=== PATIENT | female | born 1945 | race Caucasian/White ===

== ENCOUNTER 2019-03-26 12:54 | Emergency (ER) | payer MEDICARE, BC ==
[2019-03-26] MEDS ORDERED: HYDROCODONE/APAP 5/325MG TABLET PO ONE (14:03)
--- NOTE | 2019-03-26 14:06 | Emergency Department Record ---
History of Present Illness - General Chief complaint: Extremity Problem Stated complaint: RT LEG PAIN Time Seen by Provider: 03/26/19 14:01 Source: Patient, Family Mode of Arrival: Ambulatory Limitations: No limitations - History of Present Illness Initial comments: 74 yo female presents with right leg pain for about 4 days. She states it started in the knee and radiates down. No known injury. She has pain and some swelling in the calf as well. No redness or warmth. No abnormal coolness. It hurts to stand or walk. No history of orthopedic disease. No cough, chest pain or shortness of breath. MD Complaint: Extremity pain, Extremity swelling Onset/Timin -: Days(s) Location: Right, Lower Leg, Thigh History of Same: No -: Yes Arthralgia, Yes Myalgia Severity scale (1-10): 7 Quality: Aching, Burning Consistency: Constant Improves with: Nothing Worsens with: Walking, Weight bearing Associated Symptoms: Denies other symptoms - Related Data Home Medications Medication Instructions Recorded Confirmed Last Taken Amlodipine Besylate [Norvasc] 5 mg PO DAILY 03/26/19 03/26/19 03/26/19 Calcium Carbonate 650 mg PO ASDIR 03/26/19 03/26/19 03/26/19 Ergocalciferol (Vitamin D2) 2,500 unit PO 03/26/19 Unknown [Ergocal] Glipizide 10 mg PO DAILY 03/26/19 03/26/19 03/26/19 Losartan Potassium 50 mg PO DAILY 03/26/19 03/26/19 03/26/19 Melatonin 5 mg PO QHS 03/26/19 03/26/19 03/25/19 Pioglitazone HCl 03/26/19 Unknown Ranitidine HCl 03/26/19 Unknown Sitagliptin Phosphate [Januvia] 100 mg PO DAILY 03/26/19 03/26/19 03/26/19 Ubidecarenone [Co Q-10] 200 mg PO DAILY 03/26/19 03/26/19 03/26/19 Previous Rx's Medication Instructions Recorded Hydrocodone/Acetaminophen [Malden 1 each PO Q6H #10 tablet 03/26/19 5-325 Tablet] Allergies Allergy/AdvReac Type Severity Reaction Status Date / Time niacin Allergy FLUSHING Verified 03/26/19 13:38 Travel Screening - Travel/Exposure Within Last 30 Days Have you traveled within the last 30 days?: No - Travel/Exposure Within Last Year Have you traveled outside the [place] in the last year?: No - Additonal Travel Details Have you been exposed to anyone with a communicable illness?: No - Travel Symptoms Symptom Screening: None Review of Systems Constitutional: Denies: Chills, Fever, Malaise, Weakness Eyes: Denies: Eye discharge ENT: Denies: Congestion, Throat pain Respiratory: Denies: Cough, Dyspnea, Hemoptysis, Stridor, Wheezes Cardiovascular: Denies: Chest pain, Palpitations, Syncope Endocrine: Denies: Fatigue, Polydipsia, Polyuria Gastrointestinal: Denies: Abdominal pain, Diarrhea, Nausea, Vomiting Genitourinary: Denies: Discharge, Dysuria, Urgency Musculoskeletal: Reports: Arthralgia, Myalgia. Denies: Back pain Skin: Denies: Bruising, Change in color, Rash Neurological: Denies: Headache Psychiatric: Denies: Anxiety Hematological/Lymphatic: Denies: Blood Clots, Easy bleeding, Easy bruising Past Medical History - SOCIAL HISTORY Smoking Status: Never smoker Alcohol Use: None Drug Use: None - RESPIRATORY Hx Respiratory Disorders: No - CARDIOVASCULAR Hx Cardio Disorders: Yes Hx Heart Attack: Yes Comment:: hypercholesterol - NEURO Hx Neuro Disorders: No - GI Hx GI Disorders: No - Hx Genitourinary Disorders: Yes Hx Kidney Stones: Yes - ENDOCRINE Hx Endocrine Disorders: Yes Hx Diabetes: Yes Hx Thyroid Disease: Yes - MUSCULOSKELETAL Hx Musculoskeletal Disorders: Yes Hx Arthritis: Yes - PSYCH Hx Psych Problems: No - HEMATOLOGY/ONCOLOGY Hx Hematology/Oncology Disorders: No Family Medical History Any Significant Family History?: No Physical Exam - General General Appearance: Alert, Oriented x3, Cooperative, No acute distress Limitations: No limitations - Head Head exam: Atraumatic, Normal inspection - Eye Eye exam: Normal appearance. negative: Conjunctival injection, Scleral icterus - ENT ENT exam: Normal exam, Mucous membranes moist Ear exam: Normal external inspection Nasal Exam: Normal inspection Mouth exam: Normal external inspection - Neck Neck exam: Normal inspection - Respiratory Respiratory exam: Normal lung sounds bilaterally. negative: Respiratory distress - Cardiovascular Cardiovascular Exam: Regular rate, Normal rhythm, Normal heart sounds - GI/Abdominal GI/Abdominal exam: Soft. negative: Tenderness - Rectal Rectal exam: Deferred - exam: Deferred - Extremities Extremities exam: Calf tenderness, Full ROM, Pedal edema, Tenderness (tender medial knee joint, full ROM, no instability, no abnormal warmth). negative: Normal inspection - Back Back exam: Denies: CVA tenderness (R), CVA tenderness (L) - Neurological Neurological exam: Alert, Oriented X3 - Psychiatric Psychiatric exam: Normal affect, Normal mood. negative: Agitated, Anxious - Skin Skin exam: Dry, Intact, Normal color, Warm Course Vital Signs 03/26/19 13:52 Temperature 97.7 F Pulse Rate 69 Respiratory 18 Rate Blood Pressure 152/70 Pulse Ox 98 - Reevaluation(s) Reevaluation #1: 03/26/19 15:07 The XR demonstrated tricompartmental degenerative changes The Venous doppler was negative for acute process She will be referred for follow up Disposition Disposition: Discharge Clinical Impression: Arthritis of knee Disposition: Home, Self-Care Condition: (1) Good Instructions: Arthritis (ED) Additional Instructions: Call your doctor for the next available follow up appointment Review this ER visit and the tests performed with your family doctor Return to the ER for a recheck if worse, any new concerns or questions Take the prescriptions provided as directed Prescriptions: Hydrocodone/Acetaminophen [Malden 5-325 Tablet] 1 each PO Q6H #10 tablet Referrals: Chris Ko [DOCTOR OF OSTEOPATH] - [facility] [Provider Group] Forms: Patient Portal Access Time of Disposition: 15:10 Quality - Quality Measures Quality Measures: N/A - Blood Pressure Screening Does Patient Have Any of the Following: No Blood Pressure Classification: Hypertensive Reading Systolic Measurement: 152 Diastolic Measurement: 70 Screening for High Blood Pressure: < Pre-Hypertensive BP, F/U Documented > [G8950] Pre-Hypertensive Follow-up Interventions: Referral to alternative/primary care provider.
--- NOTE | 2019-03-29 00:25 | RADIOLOGY REPORT ---
EXAM: KNEE, RIGHT 3 VIEWS HISTORY: ABDOMINAL PAIN. NO KNOWN INJURY. LEG SWELLING. TECHNIQUE: AP, lateral, and oblique views are obtained. COMPARISON: None. ENCOUNTER: Initial. FINDINGS: There is normal bone mineralization. Mild tricompartmental osteoarthritic changes are identified. No joint effusion. No focal soft tissue abnormality. Mild arterial calcification. IMPRESSION: NO ACUTE BONE NOR JOINT ABNORMALITY. MILD TRICOMPARTMENTAL OSTEOARTHRITIC CHANGES, MOST PRONOUNCED IN THE PATELLOFEMORAL COMPARTMENT. JOB NUMBER: [id number] [facility]
--- NOTE | 2019-03-29 00:43 | US VENOUS DOPPLER REPORT ---
EXAM: ULTRASOUND VENOUS DOPPLER LOWER EXT RT HISTORY: RIGHT LOWER EXTREMITY PAIN FOR FOUR DAYS. TRAVEL ONE MONTH AGO. TECHNIQUE: Perrin scale, color Doppler, and duplex Doppler evaluation of the deep venous structures of the right lower extremity performed from the level of the external iliac vein through the calf veins. Imaging of the external iliac, common femoral, and greater saphenous veins on the left also performed. COMPARISON: None. FINDINGS: On the right, the external iliac, common femoral, deep femoral, greater saphenous, superficial femoral, and popliteal veins are anechoic and completely compressible throughout. Normal Doppler venous waveforms are noted at all levels. These waveforms are augmentable. The peroneal, posterior tibial, and anterior tibial veins also appear patent on the right. No evidence of deep venous thrombosis within the external iliac, common femoral, nor greater saphenous veins on the left. IMPRESSION: NO EVIDENCE OF DEEP VENOUS THROMBOSIS WITHIN THE RIGHT LOWER EXTREMITY. JOB NUMBER: [id number] [facility]
== END 2019-03-26 15:35 | disposition home or self-care (01) ==
LOC: ER 12:54
DX: M17.11 Unilateral primary osteoarthritis, right knee (principal); M79.651 Pain in right thigh; I25.2 Old myocardial infarction; E11.9 Type 2 diabetes mellitus without complications; Z79.84 Long term (current) use of oral hypoglycemic drugs
CPT/HCPCS: 99283; 99284